=== PATIENT | male | born 1960 | race Caucasian/White ===

== ENCOUNTER → 2023-06-26 | Outpatient (CLI) | payer OTHER ==
[~2023-06-26] MED LIST: CYCL10 PO; FENO160 PO; FLUT1DIS2; KETO10 PO; LISI20 PO; MONT10T PO; Prednisone20 MG PO; SUMA25 PO; TRAZ150T57 PO; Zocor20 MG PO
== END | disposition home or self-care (01) ==
LOC: LAB SHORT 08:20 → LAB 08:20
PROVIDERS: Internal Medicine
DX: I10 Essential (primary) hypertension (principal)
CPT/HCPCS: 81050

== ENCOUNTER → 2023-08-29 | Outpatient (CLI) | payer OTHER | END | disposition home or self-care (01) | LOC: LAB SHORT 14:05 → LAB 14:05 | DX: L82.1 Other seborrheic keratosis (principal) | CPT/HCPCS: 88305 ==

== ENCOUNTER 2025-01-20 05:58 | Emergency (ER) | payer OTHER ==
[~2025-01-20] VITALS: Ht 177.8 cm; Wt 127.9 kg
[2025-01-20 06:05] VITALS: BP 156/101
[2025-01-20] MEDS ORDERED: Dexamethasone Sod Phos 10 MG/ML 1ML VIAL PO ONE (06:25)
[2025-01-20] MEDS ORDERED: Erythromycin 0.5% Opth Oint 1 gm BOTHEYES ONE (06:25)
[2025-01-20] MEDS ORDERED: Tetracaine HCl/Pf 0.5% Opth Soln 4 ml BOTHEYES ONE (06:25)
[2025-01-20] MEDS ORDERED: ERYT.5TO BOTHEYES (06:32)
[2025-01-20] MEDS ORDERED: KETOROLAC TROMET5 ML TOP (06:32)
== END 2025-01-20 06:45 | disposition home or self-care (01) ==
LOC: ER 05:58
DX: H10.9 Unspecified conjunctivitis (principal); S05.02XA Injury of conjunctiva and corneal abrasion without foreign body, left eye, initial encounter; J32.9 Chronic sinusitis, unspecified; I10 Essential (primary) hypertension; E78.5 Hyperlipidemia, unspecified; G43.909 Migraine, unspecified, not intractable, without status migrainosus; J45.909 Unspecified asthma, uncomplicated; Z88.8 Allergy status to other drugs, medicaments and biological substances; Z79.899 Other long term (current) drug therapy; X58.XXXA Exposure to other specified factors, initial encounter
CPT/HCPCS: 99282; A9270; J1100